=== PATIENT | male | born 1960 | race Caucasian/White ===

== ENCOUNTER 2020-01-04 05:56 | Day surgery (SDC) | payer BC ==
[~2020-01-04] VITALS: Ht 175.3 cm; Wt 82.8 kg
[~2020-01-04 05:56] MED LIST: ASPI81CH PO; ATEN25 PO; FISH OIL PO; FLAX PO; FOLI1 PO; IBUP200 PO; Pravachol40 MG PO; RAMI5 PO
--- NOTE | 2020-01-04 06:55 | NUR ---
Ambulatory in Day Surgery. Surgical site prepped with 2% Chlorhexidine cloth wipe. History, Chart, Medications and Allergies reviewed before start of procedure. Lungs clear T/O to Auscultation. Patient confirms NPO status and agrees with scheduled surgery. Pre-Op teaching done. Pt verbalizes understanding. Patient States Post-Procedure ride home has been arranged. Patient reports completing Chlorhexadine shower X2 prior to admission to hospital.
--- NOTE | 2020-01-04 10:29 | NUR ---
Discharge instructions reviewed with patient. Patient verbalizes understanding. Copy given to patient to take home. Abd binder in place for comfort. ice therapy given to pt. Discharged via wheelchair to private car for ride home. Dressing CDI
== END 2020-01-04 22:43 | disposition home or self-care (01) ==
LOC: ORSCMMR 05:56 → ORD 07:30 → ORSCMMR 07:30
PROVIDERS: Surgery
PROC: 0WUF0JZ Supplement Abdominal Wall with Synthetic Substitute, Open Approach (ICD-10-PCS; principal; 2020-01-04 07:30)
DX: K42.9 Umbilical hernia without obstruction or gangrene (principal); I10 Essential (primary) hypertension; Z79.899 Other long term (current) drug therapy; Z79.82 Long term (current) use of aspirin
CPT/HCPCS: A9270-GY; C1781; J0690; J1100; J1885; J2250; J2405; J2704; J3010; J7120